=== PATIENT | male | born 1960 | race Caucasian/White ===

== ENCOUNTER → 2017-09-28 | Outpatient (CLI) | payer BC ==
[~2017-09-28] MED LIST: NYQUIL; ONDA4TAB46 PO
== END | disposition home or self-care (01) ==
LOC: C.PATHSPEC 14:54
PROVIDERS: ATTEND Dentist Oral and Maxillofacial Surgery
DX: D18.01 Hemangioma of skin and subcutaneous tissue (principal)

== ENCOUNTER 2022-11-23 16:39 | Inpatient (IN) ==
--- NOTE | 2022-11-23 17:07 | Emergency Department Note ---
Impression & Plan Pulmonary embolism, Chest pain, Hematuria, Acute right flank pain ED Provider Note NAME: MYRTLE GARCIA JR AGE: 62 SEX: M : 1960 ARRIVES VIA: Walk-In INFORMANT: Patient, ED PROVIDER(S): Vernon Floyd MD CHIEF COMPLAINT: Flank pain, shortness of breath MEDICAL DECISION MAKING: Patient presents due to concern for right-sided flank pain which has improved since it began. The patient did have blood work completed and IV was established [id number] BMP urinalysis obtained. The patient declined any pain medication but was given some IV Zofran. Patient did have a CT of the abdomen pelvis with IV contrast ordered. Patient has a normal white counts hemoglobin and platelet count. Kidney function is unremarkable. Troponin not elevated. Prerenal azotemia noted. Patient had complained worsening pain so was given some morphine IV 6 mg. Lipase at 84. Urinalysis does show blood. COVID-negative CT of the abdomen pelvis does show consolidation in the right lung base does show concern for the possibility of PE. The patient was ordered heparin and coags. Patient was also ordered CT angiography of the chest. I did speak the on-call hospitalist Dr. Flaherty the patient was admitted to the medicine service. I did review the patient's CT angiography of the chest which showed right lower lobe PE no evide nce of right heart strain. Possible right lower lobe infiltrate or infarct. Patient was admitted to Dr. Flaherty. Critical Care: I have personally spent 40 minutes of critical care time in direct management of this patient. This includes bedside care, interpretation of diagnostic studies, and testing, discussion with consultants, patient, and family members, and other require inpatient management activities. This 40 minutes is in excess of all separately billable procedures. Prior /Outside records reviewed: Did review the patient's most recent EP visit with Dr. Faye which showed the patient does have a dual-chamber pacemaker secondary to complete heart block. I did review the patient did have a cardiac catheterization with Dr. Joseph in July 2018 which showed nonobstructive CAD 20 to 30% ostial circumflex disease otherwise unremarkable Differential diagnosis: Renal colic, UTI, appendicitis, diverticulitis, mesenteric ischemia, aortic pathology, infections, inflammatory bowel disease, PUD, cholecystitis among others were considered Diagnostics, as interpreted by me: ECG: None Cardiac monitoring: An order was placed for continuous cardiac monitoring. The monitor shows a rate of 88 with sinus rhythm. Patient was placed on pulse oximetry Medical decision rules: none Imaging studies: See below HPI: Patient presents due to concern for right-sided flank pain that he noticed earlier this morning. He did state that it was more a 10 out of 10 earlier but has since improved. Patient did take some Tylenol. Patient denies any current chest pains or shortness of breath but he states that the pain was causing difficulty with his breathing earlier. No recent falls or trauma. The patient did have a prostate biopsy performed by Dr. Moncada at [facility] on Monday. Patient did have some nausea earlier but this is since improved. The patient had no vomiting. No fevers or chills. The patient denies any current chest pains or shortness of breath. Patient did have the recent procedure but this was "in and out." The patient did not require sedation or endotracheal intubation. The patient denies any recent hospitalizations leg swelling or calf pain no recent prolonged car plane travel no history of DVT or PE. The patient does take a baby aspirin but no blood thinners. No recent falls or trauma the patient denies any current blood in the urine or stool. The patient states that after the biopsy he did have some scant blood in urine but this is since cleared up. PAST MEDICAL HISTORY: See Below PAST SURGICAL HISTORY: See Below SOCIAL HISTORY: See Below HOME MEDICATIONS: See Below ALLERGIES: See Below VITALS: See Below PHYSICAL EXAMINATION: GENERAL: NAD, wearing a mask, non-toxic. EYE EXAM: Normal conjunctiva. PERRL, no anisocoria and EOM's grossly intact w/o pain. NECK: Supple, no nuchal rigidity, no adenopathy, non-tender. No signs of meningismus. FROM of the neck with good chin to chest and neck extension. No st ridor. LUNGS: Clear to auscultation. Normal chest wall mechanics. HEART: NSR, no MRG. ABDOMEN: Abdomen soft, non-tender, normo-active bowel sounds, no masses, no rebound or guarding. BACK: No CVA TTP. SKIN: No rashes and no bruising. UPPER EXTREMITIES: Upper extremities are grossly normal. LOWER EXTREMITIES: Grossly normal, no edema. NEURO EXAM: A&O x3, cranial nerves II-XII grossly intact, normal speech, moves all 4 extremities. Past Med/Surg History Medical History Aortic root dilatation CAD (coronary artery disease) Mild nonobstructive coronary artery disease per 2018 cardiac cath Obesity (BMI 30.0-34.9) Pacemaker Implanted 2018 (complete heart block), [employer], follows with Dr. Faye/[place] Pericarditis 2018 Surgical History History of colonoscopy History of permanent cardiac pacemaker placement Implanted 2018 (complete heart block), [employer], last check 2020, follows with Dr. Faye/[place] Hx of sinus surgery Septoplasty, Celon Turbinate Reduction (11/06/20): LMA#4 at [facility] Family History Brother Aneurysm Father Coronary heart disease Myocardial infarction Other No family history of adverse response to anesthesia Social History Smoking Status: Former smoker Second Hand Exposure: No; Hx Alcohol Use: No Hx Substance Use: No Preferred Language: Indian Communication Ability: Effective Director Prospect Required: No Beliefs That Will Affect Care: None marital status: Current Living Situation: Spouse current occupational status: employed current occupation: [employer] Feels Safe at Home: Yes Assistive Devices: None Allergies Allergies Allergy/AdvReac Type Severity Reaction Status Date / Time No Known Allergies Allergy Verified 11/23/22 19:57 Home Meds Home Medications Medication Instructions Recorded Confirmed tamsulosin 0.4 mg capsule 0.4 mg PO DAILY 11/01/22 11/23/22 aspirin 81 mg tablet,delayed 81 mg PO DAILY 11/23/22 11/23/22 release atorvastatin 20 mg PO DAILY 11/23/22 11/23/22 Results & Data (ED) Vital Signs Vital Signs - 24 hr 11/23/22 16:39 11/23/22 18:00 11/23/22 18:07 Temperature 36.3 C L Temperature Source Temporal Artery Scan Pulse Rate 114 H Pulse Rate [Apical] 96 H Respiratory Rate 16 18 Respiratory Effort / Characteristics Non-Labored Spontaneous Respiratory Depth Normal Respiratory Pattern Regular Blood Pressure 128/58 L Blood Pressure [Left Arm] 124/78 Blood Pressure Mean 81 Blood Pressure Mean [Left Arm] 93 Blood Pressure Position [Left Arm] Lying Pulse Oximetry 97 96 94 Oxygen Delivery Method Room Air Room Air Sepsis Recent Fever Within 48 Hours No Sepsis New/Unexplained Change in Mental Status No Sepsis Action Taken by Nursing No Action Required 11/23/22 18:42 11/23/22 18:58 11/23/22 22:53 Temperature Temperature Source Pulse Rate 90 106 H Pulse Rate [Apical] 112 H Respiratory Rate 18 Respiratory Effort / Characteristics Non-Labored Spontaneous Respiratory Depth Normal Respiratory Pattern Regular Blood Pressure Blood Pressure [Left Arm] 131/86 Blood Pressure Mean Blood Pressure Mean [Left Arm] 101 Blood Pressure Position [Left Arm] Pulse Oximetry 94 Oxygen Delivery Method Room Air Sepsis Recent Fever Within 48 Hours Sepsis New/Unexplained Change in Mental Status Sepsis Action Taken by [place]way Medications Current Medication List: was personally reviewed by me Laboratory Data Attestation: I reviewed the patient's lab results. 11/23/22 17:15 11/23/22 17:15 Lab Results 11/23/22 11/23/22 11/23/22 Range/Units 17:15 17:15 17:15 WBC 9.04 (4.8-10.8) K/ul RBC 4.43 L (4.70-6.10) M/uL Hgb 14.0 (14.0-18.0) g/dl POC Hgb (14.0-18.0) g/dl Hct 40.4 L (42.0-52.0) % POC Hct (42-52) % MCV 91.2 (80.0-100.0) fL MCH 31.6 (25.0-34.0) pg MCHC 34.7 (32.0-36.0) g/dL RDW Std Deviation 42.9 (36.4-46.3) fL RDW Coeff of Lyle 12.8 (11.5-14.5) % Plt Count 228 (130-400) K/uL MPV 9.9 (9.4-12.4) fL Immature Gran % (Auto) 0.3 % Neut % (Auto) 74.6 % Lymph % (Auto) 12.3 % [place] % (Auto) 10.6 % Eos % (Auto) 1.9 % Baso % (Auto) 0.3 % Neut # (Auto) 6.74 H (1.40-6.50) K/uL Lymph # (Auto) 1.11 L (1.2-3.4) K/uL [place] # (Auto) 0.96 H (0.11-0.59) K/uL Eos # (Auto) 0.17 (0-0.50) K/uL Baso # (Auto) 0.03 (0-0.2) K/uL Immature Gran # (Auto) 0.03 (0.01-0.20) K/uL PT (9.0-12.0) Seconds INR (0.9-1.1) APTT (21.0-31.0) Seconds PTT Ratio POC Sodium (135-144) mmol/L Sodium 139 (136-145) mmol/L POC Potassium (3.3-5.0) mmol/L Potassium 3.9 (3.5-5.1) mmol/L POC Chloride (101-112) mmol/L Chloride 106 (98-107) mmol/L Carbon Dioxide 24 (21-32) mmol/L POC Total CO2 (24-31) mmol/L Anion Gap 9 (3-11) POC Anion Gap (16-25) mmol/L POC BUN (7-18) mg/dl BUN 32 H (6-23) mg/dl Creatinine 0.98 (0.6-1.4) mg/dl POC Creatinine (0.6-1.3) mg/dl Est Cr Clr Drug Dosing 104.8 ml/min Est GFR ( Amer) 95.4 ml/min Est GFR (Non-Af Amer) 82.3 ml/min BUN/Creatinine Ratio 32.7 H (10-20) Glucose 101 H (70-99(Fasting)) mg/dl POC Glucose (other) (70-99) mg/dl Calcium 9.2 (8.5-10.1) mg/dl POC Ioniz Calcium Ashlee (1.12-1.32) mmol/l Total Bilirubin 0.6 (0.2-1.0) mg/dl AST 17 (13-39) U/L ALT 22 (7-52) U/L Alkaline Phosphatase 107 H (34-104) U/L Troponin I High Sens 3.3 (0-20) pg/ml Total Protein 7.2 (6.0-8.3) gm/dl Albumin 4.2 (3.4-5.0) gm/dl Globulin 3.0 (2.5-4.0) gm/dl Albumin/Globulin Ratio 1.4 (0.9-2) Lipase 84 H (11-82) U/L Urine Color Dark Yellow Urine Appearance Cloudy A (Clear) Urine pH 5.5 (4.5-7.5) Ur Specific [place]atz 1.035 H (1.000-1.030) Urine Protein Trace H (Negative) Urine Glucose (UA) Negative (Negative) Urine Ketones Negative (Negative) Urine Blood 2+ H (Negative) Urine Nitrite Negative (Negative) Urine Bilirubin Negative (Negative) Urine Urobilinogen Negative (Negative) Ur Leukocyte Esterase Negative (Negative) Urine WBC (Auto) 10-30 H (0-5) /hpf Urine RBC (Auto) >30 H (0-4) /hpf U Hyaline Cast (Auto) 5-10 H (0-5) /lpf U Epithel Cells (Auto) 10-20 H (0-5) /lpf Urine Bacteria (Auto) Negative (Negative) SARS-CoV-2, RNA, NAAT (NEGATIVE) 11/23/22 11/23/22 11/23/22 Range/Units 18:02 20:15 21:47 WBC (4.8-10.8) K/ul RBC (4.70-6.10) M/uL Hgb (14.0-18.0) g/dl POC Hgb 13.6 L (14.0-18.0) g/dl Hct (42.0-52.0) % POC Hct 40 L (42-52) % MCV (80.0-100.0) fL MCH (25.0-34.0) pg MCHC (32.0-36.0) g/dL RDW Std Deviation (36.4-46.3) fL RDW Coeff of Lyle (11.5-14.5) % Plt Count (130-400) K/uL MPV (9.4-12.4) fL Immature Gran % (Auto) % Neut % (Auto) % Lymph % (Auto) % [place] % (Auto) % Eos % (Auto) % Baso % (Auto) % Neut # (Auto) (1.40-6.50) K/uL Lymph # (Auto) (1.2-3.4) K/uL [place] # (Auto) (0.11-0.59) K/uL Eos # (Auto) (0-0.50) K/uL Baso # (Auto) (0-0.2) K/uL Immature Gran # (Auto) (0.01-0.20) K/uL PT 10.5 (9.0-12.0) Seconds INR 1.0 (0.9-1.1) APTT 25.1 (21.0-31.0) Seconds PTT Ratio 0.9 POC Sodium 141 (135-144) mmol/L Sodium (136-145) mmol/L POC Potassium 3.8 (3.3-5.0) mmol/L Potassium (3.5-5.1) mmol/L POC Chloride 104 (101-112) mmol/L Chloride (98-107) mmol/L Carbon Dioxide (21-32) mmol/L POC Total CO2 25 (24-31) mmol/L Anion Gap (3-11) POC Anion Gap 17.0 (16-25) mmol/L POC BUN 30 H (7-18) mg/dl BUN (6-23) mg/dl Creatinine (0.6-1.4) mg/dl POC Creatinine 1.0 (0.6-1.3) mg/dl Est Cr Clr Drug Dosing ml/min Est GFR ( Amer) ml/min Est GFR (Non-Af Amer) ml/min BUN/Creatinine Ratio (10-20) Glucose (70-99(Fasting)) mg/dl POC Glucose (other) 99 (70-99) mg/dl Calcium (8.5-10.1) mg/dl POC Ioniz Calcium Ashlee 1.20 (1.12-1.32) mmol/l Total Bilirubin (0.2-1.0) mg/dl AST (13-39) U/L ALT (7-52) U/L Alkaline Phosphatase (34-104) U/L Troponin I High Sens (0-20) pg/ml Total Protein (6.0-8.3) gm/dl Albumin (3.4-5.0) gm/dl Globulin (2.5-4.0) gm/dl Albumin/Globulin Ratio (0.9-2) Lipase (11-82) U/L Urine Color Urine Appearance (Clear) Urine pH (4.5-7.5) Ur Specific [place] (1.000-1.030) Urine Protein (Negative) Urine Glucose (UA) (Negative) Urine Ketones (Negative) Urine Blood (Negative) Urine Nitrite (Negative) Urine Bilirubin (Negative) Urine Urobilinogen (Negative) Ur Leukocyte Esterase (Negative) Urine WBC (Auto) (0-5) /hpf Urine RBC (Auto) (0-4) /hpf U Hyaline Cast (Auto) (0-5) /lpf U Epithel Cells (Auto) (0-5) /lpf Urine Bacteria (Auto) (Negative) SARS-CoV-2, RNA, NAAT NEGATIVE (NEGATIVE) Administered Medications Heparin Sodium/Dextrose (Heparin Sodium/Dextrose) 25,000 units in 500 mls @ 34 mls/hr IV .[id number] [facility]; Protocol Stop: 12/23/22 20:29 Last Admin: 11/23/22 21:41 Dose: 1,700 units/hr, 34 mls/hr Documented By: GISELL Co-signed By: Discontinued Medications Ioversol (Optiray 350 100ml) 85 ml IV ONCE ONE Stop: 11/23/22 18:19 Last Admin: 11/23/22 18:22 Dose: 85 ml Documented By: CARIDAD Ioversol (Optiray 320 500ml) 111 ml IV ONCE ONE Stop: 11/23/22 21:20 Last Admin: 11/23/22 21:20 Dose: 111 ml Documented By: CARIDAD Morphine Sulfate (Morphine Sulfate 10 Mg/Ml Carp/Vial) 6 mg IV NOW STA Stop: 11/23/22 18:43 Last Admin: 11/23/22 18:46 Dose: Not Given Documented By: JEREMIAH Morphine Sulfate (Morphine Sulfate 4 Mg/Ml 1 Ml Carp\\Vial) Confirm Administered Dose 4 mg .ROUTE .STK-MED ONE Stop: 11/23/22 18:45 Last Admin: 11/23/22 18:46 Dose: 4 mg Documented By: JEREMIAH Morphine Sulfate (Morphine Sulfate 2 Mg/Ml Carp) Confirm Administered Dose 2 mg .ROUTE .STK-MED ONE Stop: 11/23/22 18:46 Last Admin: 11/23/22 18:46 Dose: 2 mg Documented By: JEREMIAH Ondansetron HCl (Ondansetron Inj 2 Mg/Ml 2 Ml Vial) 4 mg IV NOW STA Stop: 11/23/22 17:22 Last Admin: 11/23/22 17:43 Dose: 4 mg Documented By: BEZ Imaging Data Radiologist's Impression: Abdomen/Pelvis CT 11/23/22 17:21 CT SCAN OF THE ABDOMEN AND PELVIS WITH IV CONTRAST CLINICAL HISTORY: Right flank pain. COMPARISON STUDY: No priors. TECHNIQUE: Following the IV administration of 85 cc of Optiray 350, CT scan of the abdomen and pelvis is performed from the lung bases to the proximal femora. Images are reviewed in the axial, sagittal, and coronal planes. IV contrast was administered without complication. A dose lowering technique was utilized adhering to the principles of ALARA. CT DOSE: 857.24 mGy.cm FINDINGS: Lung bases: The heart is enlarged and without pericardial effusion. Pacemaker leads are in place. A 4 mm pleural-based nodule is seen in the right middle lobe on image #10. Question pulmonary embolus within a branch of the right lower lobe pulmonary artery. Dependent consolidation is seen at the right lung base. There is a small to moderate hiatal hernia. Prominent lymph nodes adjacent to the distal esophagus measure up to 10 mm in short axis. Liver: The contrast-enhanced liver is mildly enlarged measuring over 18 cm in length. The liver demonstrates mixed attenuation suggesting steatosis. There is no intrahepatic biliary ductal dilatation. The hepatic veins and portal veins are patent. Gallbladder: Unremarkable. Spleen: Normal in size and attenuation. Pancreas: Unremarkable. Adrenal glands: Unremarkable. Kidneys: The contrast enhanced kidneys are normal in size and without hydronephrosis. The kidneys enhance symmetrically. A 6 cm cyst arises from the upper pole of the right kidney. Renal sinus cysts are seen bilaterally. Abdominal vasculature: The abdominal aorta is normal in course and caliber noting mild atherosclerotic calcification. Bowel: There is mild colonic fecal retention. No bowel obstruction is seen. The appendix is well-visualized and normal. Peritoneum: There is no intraperitoneal free air or abdominal ascites. There is a fat-containing umbilical hernia. There is nonspecific haziness throughout the central mesentery. Lymphadenopathy: None. Pelvic viscera: The prostate gland is moderately enlarged and heterogeneous. The bladder is normal as visualized. There is a fat-containing right inguinal hernia. Skeletal structures: The skeletal structures are osteopenic. Mild lumbosacral spondylosis is observed. No lytic or blastic lesions are seen. IMPRESSION: 1. There is dependent consolidation at the right lung base, which could represent a mild pneumonitis or possibly a small pulmonary infarct. Pulmonary embolus is questioned within branches of the right lower lobe pulmonary artery a nd a small infarct is favored. Correlation with a CT angiogram of the chest is recommended as this is not well assessed on this abdominal examination. 2. No acute infectious or inflammatory findings are identified in the abdomen or pelvis. 3. Cardiomegaly and cardiac pacemaker. 4. The liver is mildly enlarged and steatotic. 5. Additional findings as above. ACT 112: Negative or not required by law. Electronically signed by: Abraham Gross M.D. 11/23/2022 7:45 PM Chest CTA 11/23/22 20:43 CR Exam(s): CTA CHEST EXAM: CT Angiography Chest With Intravenous Contrast CLINICAL HISTORY: Reason for exam: PE. TECHNIQUE: Axial computed tomographic angiography images of the chest with intravenous contrast. CTDI is 36.11 mGy and DLP is 720.07 mGy-cm. Automated exposure control was utilized for the study. A dose lowering technique was utilized adhering to the principles of ALARA. MIP reconstructed images were created and reviewed. 111ml optiray 320 given IV. COMPARISON: None. FINDINGS: Pulmonary arteries: Mild burden, occlusive, segmental and subsegmental right lower lobe pulmonary embolism. Aorta: No aneurysm. Lungs: Mild, dependent infiltrate or infarct right lower lobe. Small left upper lobe nodular infiltrates. Isolated 4 mm right middle lobe pleural-based pulmonary nodule. Mild left lower lobe atelectasis or infiltrate. No consolidation. Pleural space: No significant effusion. No pneumothorax. Heart: Pacemaker. Mild to moderate cardiomegaly. No significant pericardial effusion. No evidence of elevated right heart pressures. Bones/joints: No acute fracture. Soft tissues: Wall thickening of esophagus with hiatal hernia and fluid distention, nonspecific, cannot rule out esophagitis and/or reflux. Right upper pole renal cyst, 5.5 cm, partially imaged. Lymph nodes: No enlarged lymph nodes. IMPRESSION: 1. Mild right lower lobe pulmonary embolism. No right heart strain. 2. Mild right lower lobe infiltrate or infarct. Mild left lower lobe infiltrate. 3. Nodular infiltrate left upper lobe and 4 mm pleural-based nodule right middle lobe. 4. Moderate to severe fluid distended osseous with wall thickening and hiatal hernia. Correlate clinically, cannot rule out esophagitis and/or reflux. Communications: Call Doctor Pulmonary Embolism Electronically signed by: Beth Meek M.D. 11/23/22 21:42 PM Discharge Plan Visit Data Chief Complaint: Back Injury/Pain Stated Complaint: BACK PAIN R SIDE, AFFECTING BREATHING, ED Provider: Vernon Floyd Prescriptions Prescriptions: No Action tamsulosin 0.4 mg capsule 0.4 mg PO DAILY aspirin [Aspir-81] 81 mg Tablet,Delayed Release (Dr/Ec) 81 mg PO DAILY atorvastatin 20 mg 20 mg PO DAILY
[2022-11-23] MEDS ORDERED: ONDANSETRON INJ 2 MG/ML 2 ML VIAL IV STA (17:21)
[2022-11-23 17:48] LABS: Basophils # (auto) 0.03 K/uL (0-0.2); Basophils % (auto) 0.3 %; Eosinophils # (auto) 0.17 K/uL (0-0.50); Eosinophils % (auto) 1.9 %; Hematocrit (blood only) 40.4 % (42.0-52.0); Immature Granulocytes # (auto) 0.03 K/uL (0.01-0.20); Immature Granulocytes % (auto) 0.3 %; Lymphocytes # (auto) 1.11 K/uL (1.2-3.4); Lymphocytes % (auto) 12.3 %; Mean Corpuscular Hemoglobin 31.6 pg (25.0-34.0); Mean Corpuscular Hgb Conc 34.7 g/dL (32.0-36.0); Mean Corpuscular Volume 91.2 fL (80.0-100.0); Mean Platelet Volume 9.9 fL (9.4-12.4); Monocytes # (auto) 0.96 K/uL (0.11-0.59); Monocytes % (auto) 10.6 %; Neutrophils # (auto) 6.74 K/uL (1.40-6.50); Neutrophils % (auto) 74.6 %; Platelet Count 228 K/uL (130-400); RDW Coefficient of Variation 12.8 % (11.5-14.5); RDW Standard Deviation 42.9 fL (36.4-46.3); Red Blood Count 4.43 M/uL (4.70-6.10); White Blood Count 9.04 K/ul (4.8-10.8)
[2022-11-23 18:02] LABS: Appearance Urine Cloudy (Clear); Bacteria Urine Automated Negative (Negative); Bilirubin Urine Negative (Negative); Blood Urine 2+ (Negative); Color Urine Dark Yellow; Glucose Urine UA Negative (Negative); Ketones Urine Negative (Negative); Leukocyte Esterase Urine Negative (Negative); Nitrite Urine Negative (Negative); Protein Urine Trace (Negative); RBC Urine Automated >30 /hpf (0-4); Specific Gravity Urine 1.035 (1.000-1.030); Urobilinogen Urine Negative (Negative); pH Urine 5.5 (4.5-7.5)
[2022-11-23 18:06] LABS: Albumin Globulin Ratio 1.4 (0.9-2); Albumin Level 4.2 gm/dl (3.4-5.0); BUN Creatinine Ratio 32.7 (10-20); Bilirubin,Total 0.6 mg/dl (0.2-1.0); Calcium 9.2 mg/dl (8.5-10.1); Creatinine Clr Calc Pharmacy 104.8 ml/min; Est GFR (African American) 95.4 ml/min; Est GFR (Non-African American) 82.3 ml/min; Potassium 3.9 mmol/L (3.5-5.1); Total Protein 7.2 gm/dl (6.0-8.3)
[2022-11-23 18:11] LABS: Troponin I High Sensitivity 3.3 pg/ml (0-20)
[2022-11-23 18:16] LABS: iSTAT Hemoglobin 13.6 g/dl (14.0-18.0); iSTAT Ionized Calcium 1.2 mmol/l (1.12-1.32); iSTAT Potassium 3.8 mmol/L (3.3-5.0)
[2022-11-23] MEDS ORDERED: OPTIRAY 350 100ml IV ONE (18:18)
[2022-11-23] MEDS ORDERED: MoRPHine SULFATE 10 MG/ML CARP/VIAL IV STA (18:42)
[2022-11-23] MEDS ORDERED: MoRPHine SULFATE 4 MG/ML 1 ML CARP\\VIAL ONE (18:44)
[2022-11-23] MEDS ORDERED: MoRPHine SULFATE 2 MG/ML CARP ONE (18:45)
--- NOTE | 2022-11-23 19:47 | CT Scan Report ---
CT SCAN OF THE ABDOMEN AND PELVIS WITH IV CONTRAST CLINICAL HISTORY: Right flank pain. COMPARISON STUDY: No priors. TECHNIQUE: Following the IV administration of 85 cc of Optiray 350, CT scan of the abdomen and pelvi s is performed from the lung bases to the proximal femora. Images are reviewed in the axial, sagittal , and coronal planes. IV contrast was administered without complication. A dose lowering technique wa s utilized adhering to the principles of ALARA. CT DOSE: 857.24 mGy.cm FINDINGS: Lung bases: The heart is enlarged and without pericardial effusion. Pacemaker leads are in place. A 4 mm pleural-based nodule is seen in the right middle lobe on image #10. Question pulmonary embolus wi thin a branch of the right lower lobe pulmonary artery. Dependent consolidation is seen at the right lung base. There is a small to moderate hiatal hernia. Prominent lymph nodes adjacent to the distal e sophagus measure up to 10 mm in short axis. Liver: The contrast-enhanced liver is mildly enlarged measuring over 18 cm in length. The liver demon strates mixed attenuation suggesting steatosis. There is no intrahepatic biliary ductal dilatation. T he hepatic veins and portal veins are patent. Gallbladder: Unremarkable. Spleen: Normal in size and attenuation. Pancreas: Unremarkable. Adrenal glands: Unremarkable. Kidneys: The contrast enhanced kidneys are normal in size and without hydronephrosis. The kidneys enh ance symmetrically. A 6 cm cyst arises from the upper pole of the right kidney. Renal sinus cysts are seen bilaterally. Abdominal vasculature: The abdominal aorta is normal in course and caliber noting mild atheroscleroti c calcification. Bowel: There is mild colonic fecal retention. No bowel obstruction is seen. The appendix is well-vis ualized and normal. Peritoneum: There is no intraperitoneal free air or abdominal ascites. There is a fat-containing umbi lical hernia. There is nonspecific haziness throughout the central mesentery. Lymphadenopathy: None. Pelvic viscera: The prostate gland is moderately enlarged and heterogeneous. The bladder is normal as visualized. There is a fat-containing right inguinal hernia. Skeletal structures: The skeletal structures are osteopenic. Mild lumbosacral spondylosis is observed . No lytic or blastic lesions are seen. IMPRESSION: 1. There is dependent consolidation at the right lung base, which could represent a mild pneumonitis or possibly a small pulmonary infarct. Pulmonary embolus is questioned within branches of the right l ower lobe pulmonary artery and a small infarct is favored. Correlation with a CT angiogram of the [place] [address] is recommended as this is not well assessed on this abdominal examination. 2. No acute infectious or inflammatory findings are identified in the abdomen or pelvis. 3. Cardiomegaly and cardiac pacemaker. 4. The liver is mildly enlarged and steatotic. 5. Additional findings as above. ACT 112: Negative or not required by law. Electronically signed by: Abraham Gross M.D. 11/23/2022 7:45 PM
[2022-11-23] MEDS ORDERED: Heparin IV Adult Wt-Based Standard *NO* Bolus Protocol IV ONE (20:01)
[2022-11-23] MEDS ORDERED: HEPARIN SODIUM/DEXTROSE 25,000 UNITS/500 ML BAG IV SCH (20:30)
[2022-11-23 21:06] LABS: Partial Thromboplastin Ratio 0.9; Partial Thromboplastin Time 25.1 Seconds (21.0-31.0); Prothrombin Time 10.5 Seconds (9.0-12.0)
[2022-11-23] MEDS ORDERED: OPTIRAY 320 500ml IV ONE (21:19)
--- NOTE | 2022-11-23 21:43 | CT Scan Report ---
Exam(s): CTA CHEST EXAM: CT Angiography Chest With Intravenous Contrast CLINICAL HISTORY: Reason for exam: PE. TECHNIQUE: Axial computed tomographic angiography images of the chest with intravenous contrast. CTDI is 36.11 mGy and DLP is 720.07 mGy-cm. Automated exposure control was utilized for the study. A dose lowering technique was utilized adhering to the principles of ALARA. MIP reconstructed images were created and reviewed. 111ml optiray 320 given IV. COMPARISON: None. FINDINGS: Pulmonary arteries: Mild burden, occlusive, segmental and subsegmental right lower lobe pulmonary embolism. Aorta: No aneurysm. Lungs: Mild, dependent infiltrate or infarct right lower lobe. Small left upper lobe nodular infiltrates. Isolated 4 mm right middle lobe pleural-based pulmonary nodule. Mild left lower lobe atelectasis or infiltrate. No consolidation. Pleural space: No significant effusion. No pneumothorax. Heart: Pacemaker. Mild to moderate cardiomegaly. No significant pericardial effusion. No evidence of elevated right heart pressures. Bones/joints: No acute fracture. Soft tissues: Wall thickening of esophagus with hiatal hernia and fluid distention, nonspecific, cannot rule out esophagitis and/or reflux. Right upper pole renal cyst, 5.5 cm, partially imaged. Lymph nodes: No enlarged lymph nodes. IMPRESSION: 1. Mild right lower lobe pulmonary embolism. No right heart strain. 2. Mild right lower lobe infiltrate or infarct. Mild left lower lobe infiltrate. 3. Nodular infiltrate left upper lobe and 4 mm pleural-based nodule right middle lobe. 4. Moderate to severe fluid distended osseous with wall thickening and hiatal hernia. Correlate clinically, cannot rule out esophagitis and/or reflux. Communications: Call Doctor Pulmonary Embolism Electronically signed by: Beth Meek M.D. 11/23/22 21:42 PM
[2022-11-23] MEDS ORDERED: ONDANSETRON INJ 2 MG/ML 2 ML VIAL IV PRN (23:15)
[2022-11-23] MEDS ORDERED: ACETAMINOPHEN 325 MG TAB PO PRN (23:15)
[2022-11-23] MEDS ORDERED: NITROGLYCERIN SL 0.4 MG/TAB TAB SL PRN (23:15)
[2022-11-23] MEDS ORDERED: SODIUM CHLORIDE 0.9% 1000ML 1,000 ML IV SCH (23:15)
[2022-11-23] MEDS ORDERED: cefTRIAXone SODIUM 2,000 MG in DEXTROSE 5% 50 ML IV SCH (23:30)
--- NOTE | 2022-11-24 00:12 | History and Physical Report ---
DATE OF ADMISSION: 11/23/2022. CHIEF COMPLAINT: Right flank pain. HISTORY OF PRESENT ILLNESS: This is a 62-year-old male with past medical history significant for complete heart block, status post pacemaker, borderline aortic root dilatation in 2018, nonobstructive CAD in 2018, history of hyperlipidemia, presents with right flank pain since the morning. At times, it was 10/10 in severity. When the pain was severe, he was nauseous and had some shortness of breath. Currently, the pain much improved, 3/10 in severity. He said he had COVID in October. Since then, he has had on and off dry cough. Denies any fevers. Nauseous when pain was severe. No abdominal pain. He had prostate biopsy done last Monday for elevated PSA. Says he had one-day duration of some blood in the stools and blood in the urine, but its resolved now. The biopsy results are pending. He has a followup appointment at the end of this month. Denies any headache. No blurred visions. No earache, no runny nose, no sore throat. Appetite is okay. Ambulating okay. Currently, resting comfortably and hemodynamically stable. ALLERGIES: No known drug allergies. PAST MEDICAL HISTORY: As mentioned above. PAST SURGICAL HISTORY: Cardiac catheterization, prostate biopsy, status post pacemaker, bunion correction, colonoscopy, pacemaker defibrillator, repair of nasal septum. MEDICATIONS: Flomax 0.4 mg p.o. daily, aspirin 81 mg p.o. daily, atorvastatin 20 mg p.o. daily. FAMILY HISTORY: Significant for father of heart disorder , Says father had blood clots; maternal grandfather had diabetes; paternal grandmother had diabetes. SOCIAL HISTORY: . quit chewing stuff one year ago. No alcohol use. No drug use. REVIEW OF SYSTEMS: As per HPI. Rest of the review of systems is negative. PHYSICAL EXAMINATION: GENERAL: The patient is of moderate build, not in acute distress. VITAL SIGNS: Temperature 36.3, pulse 90, respiratory rate 18, blood pressure 131/86, oxygen 94% on room air. HEENT: Pupils equal, round and reactive to light. Oral mucosa moist. NECK: No JVD. No neck masses. CARDIOVASCULAR: S1 and S2 heard. Regular rate and rhythm. No murmur, no gallop. RESPIRATORY SYSTEM: Normal AP diameter. No accessory muscle use. No wheezing, no crackles. ABDOMEN: Soft, bowel sounds present, nontender, no distention. CENTRAL NERVOUS SYSTEM: Cranial nerves II through XII grossly intact. Nonfocal. EXTREMITIES: Mild pedal edema present. No erythema seen. LABORATORY DATA: WBC 9, hemoglobin 14, hematocrit 40.4, platelets 228. PT 10.5, INR 1, APTT 25.1. Sodium 139, potassium 3.9, chloride 106, CO2 24, BUN 32, creatinine 0.9, serum glucose 101, calcium 9.2, total bilirubin 0.6, AST 17, ALT 22, alkaline phosphatase 107. Troponin I high sensitivity 3.3. Lipase 84. Urinalysis, +2 blood, positive for nitrite and bacteria, wbc 10-30. SARS-CoV-2 rapid test negative. IMAGING DATA: CTA chest showing mild right lower lobe pulmonary embolism. No right heart strain, mild right lower lobe infiltrate or infarct. Mild left lower lobe infiltrate. Nodular infiltrate left upper lobe, pleural-based nodule right middle lobe, [id number] fluid distended with wall thickening and hiatal hernia. Cannot rule out esophagitis and/or reflux. EKG, sinus tachycardia at a rate of 101. ASSESSMENT AND PLAN: This is a 62-year-old male presents with right flank pain and found to have pulmonary embolism. 1. Right flank pain, most likely secondary to right acute pulmonary embolism. CTA chest showing right lower lobe pulmonary embolism. Started on IV heparin, which will be continued. We will follow also echocardiogram and lower extremity Doppler. The patient says his father had blood clot. No history of recent travel. He has COVID in October. Hypercoagulable workup as outpatient. 2. Possible pneumonia. The patient also COVID in October. Empirically started on Rocephin and doxycycline. 3. Possible esophagitis and hiatal hernia. Placed on IV Protonix b.i.d. and also consult GI. We will keep him full liquid diet for now. 4. History of nonobstructive coronary artery disease. Continue aspirin and statin. 5. History of benign prostatic hypertrophy: On Flomax. 6. History of prostarte biopsy last Monday. Follow up with Urology with biopsy results. Urine culture 7. History of complete heart block, status post pacemaker. Follows with Cardiology. 8. lower extremity edema. We will follow the lower extremity Doppler and echocardiogram. 9. Deep venous thrombosis prophylaxis: Placed on IV heparin. DISPOSITION: Closely monitor in the med tele. PT/OT prior to discharge. Social service to help with discharge planning. Job ID: [id number] [facility]
[2022-11-24] MEDS: PANTOprazole 40 MG in SYRINGE 0 ML IV SCH ×3 (00:24→20:06)
[2022-11-24] MEDS: oxyCODONE HCL IR 5 MG TAB (IMMEDIATE RELEASE) PO PRN ×2 (00:31→10:33)
[2022-11-24] MEDS ORDERED: CALCIUM CARBONATE 500 MG CHEWABLE TAB PO PRN (00:35)
[2022-11-24] MEDS: DOXYCYCLINE HYCLATE 100 MG in DEXTROSE 5% 100 ML IV SCH ×2 (00:58→11:20)
[2022-11-24] MEDS ORDERED: MoRPHine SULFATE 4 MG/ML 1 ML CARP\\VIAL IV STA (01:49)
[2022-11-24 04:16] LABS: Basophils # (auto) 0.02 K/uL (0-0.2); Basophils % (auto) 0.2 %; Hematocrit (blood only) 39.2 % (42.0-52.0); Hemoglobin 13.4 g/dl (14.0-18.0); Immature Granulocytes # (auto) 0.02 K/uL (0.01-0.20); Immature Granulocytes % (auto) 0.2 %; Lymphocytes # (auto) 0.85 K/uL (1.2-3.4); Lymphocytes % (auto) 9.9 %; Mean Corpuscular Hemoglobin 31.6 pg (25.0-34.0); Mean Corpuscular Hgb Conc 34.2 g/dL (32.0-36.0); Mean Corpuscular Volume 92.5 fL (80.0-100.0); Mean Platelet Volume 9.7 fL (9.4-12.4); Monocytes # (auto) 0.71 K/uL (0.11-0.59); Monocytes % (auto) 8.3 %; Neutrophils # (auto) 6.98 K/uL (1.40-6.50); Neutrophils % (auto) 81.4 %; Platelet Count 212 K/uL (130-400); RDW Coefficient of Variation 13.2 % (11.5-14.5); RDW Standard Deviation 45.2 fL (36.4-46.3); Red Blood Count 4.24 M/uL (4.70-6.10); White Blood Count 8.58 K/ul (4.8-10.8)
[2022-11-24 04:19] LABS: BUN Creatinine Ratio 29.9 (10-20); Calcium 9.1 mg/dl (8.5-10.1); Creatinine Clr Calc Pharmacy 105.9 ml/min; Est GFR (African American) 96.6 ml/min; Est GFR (Non-African American) 83.3 ml/min; Magnesium 1.6 mg/dl (1.7-2.4)
[2022-11-24 05:16] LABS: Partial Thromboplastin Time 54.5 Seconds (21.0-31.0)
[2022-11-24] MEDS: ASPIRIN 81 MG ECTAB PO SCH (07:56)
[2022-11-24] MEDS: TAMSULOSIN HCL 0.4 MG CAP PO SCH (07:56)
[2022-11-24] MEDS: ATORVASTATIN 20 MG TAB PO SCH (07:56)
[2022-11-24] MEDS ORDERED: ENOXAPARIN 1 MG/KG SC SCH (09:45)
[2022-11-24] MEDS ORDERED: ENOXAPARIN INJ 120 MG/0.8 ML SYR SQ SCH (09:45)
[2022-11-24] MEDS ORDERED: HEPARIN STOP ORDER ONE (09:45)
--- NOTE | 2022-11-24 10:31 | Ultrasound Report ---
BILATERAL LOWER EXTREMITY VENOUS DOPPLER HISTORY: acute pulmonary emboli. Assess for DVT? COMPARISON STUDY: None. FINDINGS: There is normal compressibility, flow, and augmentation within the bilateral lower extremit y deep venous systems. IMPRESSION: No DVT within the right or left lower extremity. ACT 112: Negative or not required by law. Electronically signed by: Roger Silva M.D. 11/24/2022 10:29 AM
[2022-11-24] MEDS: MoRPHine SULFATE 2 MG/ML CARP IV PRN ×3 (11:42→20:06)
--- NOTE | 2022-11-24 12:05 | Hospitalist Progress Note ---
Date of Service November 24, 2022 Assessment & Plan (1) Acute pulmonary embolism: Plan: Presented with right lower chest pleuritic pain Patient recently diagnosed with COVID infection in October CT angio shows right lower lobe PE, most likely right lower lobe infarct causing the chest pain. DVT ruled out Currently on Lovenox twice daily Plan to discharge on Eliquis; prescription sent to pharmacy. Will check pierce. (2) Esophagitis: Plan: CT angios shows moderate to severe fluid distended with wall thickening and hiatal hernia. Currently on Protonix twice daily GI on board (3) Complete heart block: Plan: Status post pacemaker Follow-up with cardiology. (4) BPH (benign prostatic hyperplasia): Plan: On Flomax (5) CAD (coronary artery disease): Plan: Nonobstructive CAD. Continue on aspirin and statin Plan Full code DVT prophylaxis therapeutic heparin DispoHome after resolution of medical issues Admission and Anticipated Discharge Date Admission Date: November 23, 2022 Subjective Patient seen and examined at bedside. He reports sharp pleuritic chest pain on right side of the chest. He also reports shortness of breath on exertion. Review of Systems Review of Systems: All systems reviewed & are unremarkable except as noted in Subjective Physical Exam Physical Exam: Constitutional: WD/WN, vitals as above, NAD, sitting up in bed, pleasant, conversing easily Respiratory: Bilateral clear vesicular breath sound. Cardiovascular: RRR, no murmur, no edema Vessels: no JVD or carotid bruit Chest: normal inspection of chest Abdomen: normal bowel sounds, soft, nontender, no hepatosplenomegaly Musculoskeletal: no cyanosis or clubbing, extremities motor strength 5/5 Skin: no rashes, warm and dry normal turgor Neurologic: PERRL, EOMI, accommodation nl, no face palsy, no dysarthria CN's II- XI intact bilaterally and moves all extremities Psychiatric: A+Ox3, euthymic affect Lymphatic: no cervical or axillary lymphadenopathy : deferred Results & Data Results & Data Vital Signs (Past 12 Hours) Vital Signs Temp Pulse Pulse Pulse Resp BP Pulse Ox 11/24/22 11:23 36.6 C 91 H 16 134/82 96 11/24/22 08:35 37.3 C 84 16 126/78 98 11/24/22 07:06 85 11/24/22 05:52 36.7 C 92 H 20 117/75 96 11/24/22 04:17 36.7 C 94 H 20 124/78 92 11/24/22 01:07 116 H O2 Del Method O2 Flow Rate 11/24/22 11:23 Nasal Cannula 3 11/24/22 08:35 Nasal Cannula 3 11/24/22 07:06 11/24/22 05:52 Nasal Cannula 2 11/24/22 04:17 Room Air 11/24/22 01:07 Laboratory Results Laboratory Results WBC 8.58 K/ul (4.8-10.8) 11/24/22 03:52 RBC 4.24 M/uL (4.70-6.10) L 11/24/22 03:52 Hgb 13.4 g/dl (14.0-18.0) L 11/24/22 03:52 POC Hgb 13.6 g/dl (14.0-18.0) L 11/23/22 18:02 Hct 39.2 % (42.0-52.0) L 11/24/22 03:52 POC Hct 40 % (42-52) L 11/23/22 18:02 MCV 92.5 fL (80.0-100.0) 11/24/22 03:52 MCH 31.6 pg (25.0-34.0) 11/24/22 03:52 MCHC 34.2 g/dL (32.0-36.0) 11/24/22 03:52 RDW Std Deviation 45.2 fL (36.4-46.3) 11/24/22 03:52 RDW Coeff of Lyle 13.2 % (11.5-14.5) 11/24/22 03:52 Plt Count 212 K/uL (130-400) 11/24/22 03:52 MPV 9.7 fL (9.4-12.4) 11/24/22 03:52 Immature Gran % (Auto) 0.2 % 11/24/22 03:52 Neut % (Auto) 81.4 % 11/24/22 03:52 Lymph % (Auto) 9.9 % 11/24/22 03:52 Cedar % (Auto) 8.3 % 11/24/22 03:52 Eos % (Auto) 0.0 % 11/24/22 03:52 Baso % (Auto) 0.2 % 11/24/22 03:52 Neut # (Auto) 6.98 K/uL (1.40-6.50) H 11/24/22 03:52 Lymph # (Auto) 0.85 K/uL (1.2-3.4) L 11/24/22 03:52 Cedar # (Auto) 0.71 K/uL (0.11-0.59) H 11/24/22 03:52 Eos # (Auto) 0.00 K/uL (0-0.50) 11/24/22 03:52 Baso # (Auto) 0.02 K/uL (0-0.2) 11/24/22 03:52 Immature Gran # (Auto) 0.02 K/uL (0.01-0.20) 11/24/22 03:52 PT 10.5 Seconds (9.0-12.0) 11/23/22 20:15 INR 1.0 (0.9-1.1) 11/23/22 20:15 APTT 54.5 Seconds (21.0-31.0) H* 11/24/22 03:52 PTT Ratio 2.0 11/24/22 03:52 POC Sodium 141 mmol/L (135-144) 11/23/22 18:02 Sodium 136 mmol/L (136-145) 11/24/22 03:52 POC Potassium 3.8 mmol/L (3.3-5.0) 11/23/22 18:02 Potassium 4.0 mmol/L (3.5-5.1) 11/24/22 03:52 POC Chloride 104 mmol/L (101-112) 11/23/22 18:02 Chloride 104 mmol/L (98-107) 11/24/22 03:52 Carbon Dioxide 26 mmol/L (21-32) 11/24/22 03:52 POC Total CO2 25 mmol/L (24-31) 11/23/22 18:02 Anion Gap 6 (3-11) 11/24/22 03:52 POC Anion Gap 17.0 mmol/L (16-25) 11/23/22 18:02 POC BUN 30 mg/dl (7-18) H 11/23/22 18:02 BUN 29 mg/dl (6-23) H 11/24/22 03:52 Creatinine 0.97 mg/dl (0.6-1.4) 11/24/22 03:52 POC Creatinine 1.0 mg/dl (0.6-1.3) 11/23/22 18:02 Est Cr Clr Drug Dosing 105.9 ml/min 11/24/22 03:52 Est GFR ( Amer) 96.6 ml/min 11/24/22 03:52 Est GFR (Non-Af Amer) 83.3 ml/min 11/24/22 03:52 BUN/Creatinine Ratio 29.9 (10-20) H 11/24/22 03:52 Glucose 144 mg/dl (70-99(Fasting)) H 11/24/22 03:52 POC Glucose (other) 99 mg/dl (70-99) 11/23/22 18:02 Calcium 9.1 mg/dl (8.5-10.1) 11/24/22 03:52 POC Ioniz Calcium Ashlee 1.20 mmol/l (1.12-1.32) 11/23/22 18:02 Magnesium 1.6 mg/dl (1.7-2.4) L 11/24/22 03:52 Total Bilirubin 0.6 mg/dl (0.2-1.0) 11/23/22 17:15 AST 17 U/L (13-39) 11/23/22 17:15 ALT 22 U/L (7-52) 11/23/22 17:15 Alkaline Phosphatase 107 U/L (34-104) H 11/23/22 17:15 Troponin I High Sens 3.3 pg/ml (0-20) 11/23/22 17:15 Total Protein 7.2 gm/dl (6.0-8.3) 11/23/22 17:15 Albumin 4.2 gm/dl (3.4-5.0) 11/23/22 17:15 Globulin 3.0 gm/dl (2.5-4.0) 11/23/22 17:15 Albumin/Globulin Ratio 1.4 (0.9-2) 11/23/22 17:15 Lipase 84 U/L (11-82) H 11/23/22 17:15 Procalcitonin 0.09 ng/ml (0-0.5) 11/24/22 08:06 Urine Color Dark Yellow 11/23/22 17:15 Urine Appearance Cloudy (Clear) A 11/23/22 17:15 Urine pH 5.5 (4.5-7.5) 11/23/22 17:15 Ur Specific [place] 1.035 (1.000-1.030) H 11/23/22 17:15 Urine Protein Trace (Negative) H 11/23/22 17:15 Urine Glucose (UA) Negative (Negative) 11/23/22 17:15 Urine Ketones Negative (Negative) 11/23/22 17:15 Urine Blood 2+ (Negative) H 11/23/22 17:15 Urine Nitrite Negative (Negative) 11/23/22 17:15 Urine Bilirubin Negative (Negative) 11/23/22 17:15 Urine Urobilinogen Negative (Negative) 11/23/22 17:15 Ur Leukocyte Esterase Negative (Negative) 11/23/22 17:15 Urine WBC (Auto) 10-30 /hpf (0-5) H 11/23/22 17:15 Urine RBC (Auto) >30 /hpf (0-4) H 11/23/22 17:15 U Hyaline Cast (Auto) 5-10 /lpf (0-5) H 11/23/22 17:15 U Epithel Cells (Auto) 10-20 /lpf (0-5) H 11/23/22 17:15 Urine Bacteria (Auto) Negative (Negative) 11/23/22 17:15 SARS-CoV-2, RNA, NAAT NEGATIVE (NEGATIVE) 11/23/22 21:47 Impressions Abdomen/Pelvis CT 11/23/22 17:21 CT SCAN OF THE ABDOMEN AND PELVIS WITH IV CONTRAST CLINICAL HISTORY: Right flank pain. COMPARISON STUDY: No priors. TECHNIQUE: Following the IV administration of 85 cc of Optiray 350, CT scan of the abdomen and pelvis is performed from the lung bases to the proximal femora. Images are reviewed in the axial, sagittal, and coronal planes. IV contrast was administered without complication. A dose lowering technique was utilized adhering to the principles of ALARA. CT DOSE: 857.24 mGy.cm FINDINGS: Lung bases: The heart is enlarged and without pericardial effusion. Pacemaker leads are in place. A 4 mm pleural-based nodule is seen in the right middle lobe on image #10. Question pulmonary embolus within a branch of the right lower lobe pulmonary artery. Dependent consolidation is seen at the right lung base. There is a small to moderate hiatal hernia. Prominent lymph nodes adjacent to the distal esophagus measure up to 10 mm in short axis. Liver: The contrast-enhanced liver is mildly enlarged measuring over 18 cm in length. The liver demonstrates mixed attenuation suggesting steatosis. There is no intrahepatic biliary ductal dilatation. The hepatic veins and portal veins are patent. Gallbladder: Unremarkable. Spleen: Normal in size and attenuation. Pancreas: Unremarkable. Adrenal glands: Unremarkable. Kidneys: The contrast enhanced kidneys are normal in size and without hydronephrosis. The kidneys enhance symmetrically. A 6 cm cyst arises from the upper pole of the right kidney. Renal sinus cysts are seen bilaterally. Abdominal vasculature: The abdominal aorta is normal in course and caliber noting mild atherosclerotic calcification. Bowel: There is mild colonic fecal retention. No bowel obstruction is seen. The appendix is well-visualized and normal. Peritoneum: There is no intraperitoneal free air or abdominal ascites. There is a fat-containing umbilical hernia. There is nonspecific haziness throughout the central mesentery. Lymphadenopathy: None. Pelvic viscera: The prostate gland is moderately enlarged and heterogeneous. The bladder is normal as visualized. There is a fat-containing right inguinal hernia. Skeletal structures: The skeletal structures are osteopenic. Mild lumbosacral spondylosis is observed. No lytic or blastic lesions are seen. IMPRESSION: 1. There is dependent consolidation at the right lung base, which could represent a mild pneumonitis or possibly a small pulmonary infarct. Pulmonary embolus is questioned within branches of the right lower lobe pulmonary artery and a small infarct is favored. Correlation with a CT angiogram of the chest is recommended as this is not well assessed on this abdominal examination. 2. No acute infectious or inflammatory findings are identified in the abdomen or pelvis. 3. Cardiomegaly and cardiac pacemaker. 4. The liver is mildly enlarged and steatotic. 5. Additional findings as above. ACT 112: Negative or not required by law. Electronically signed by: Abraham Gross M.D. 11/23/2022 7:45 PM Chest CTA 11/23/22 20:43 CR Exam(s): CTA CHEST EXAM: CT Angiography Chest With Intravenous Contrast CLINICAL HISTORY: Reason for exam: PE. TECHNIQUE: Axial computed tomographic angiography images of the chest with intravenous contrast. CTDI is 36.11 mGy and DLP is 720.07 mGy-cm. Automated exposure control was utilized for the study. A dose lowering technique was utilized adhering to the principles of ALARA. MIP reconstructed images were created and reviewed. 111ml optiray 320 given IV. COMPARISON: None. FINDINGS: Pulmonary arteries: Mild burden, occlusive, segmental and subsegmental right lower lobe pulmonary embolism. Aorta: No aneurysm. Lungs: Mild, dependent infiltrate or infarct right lower lobe. Small left upper lobe nodular infiltrates. Isolated 4 mm right middle lobe pleural-based pulmonary nodule. Mild left lower lobe atelectasis or infiltrate. No consolidation. Pleural space: No significant effusion. No pneumothorax. Heart: Pacemaker. Mild to moderate cardiomegaly. No significant pericardial effusion. No evidence of elevated right heart pressures. Bones/joints: No acute fracture. Soft tissues: Wall thickening of esophagus with hiatal hernia and fluid distention, nonspecific, cannot rule out esophagitis and/or reflux. Right upper pole renal cyst, 5.5 cm, partially imaged. Lymph nodes: No enlarged lymph nodes. IMPRESSION: 1. Mild right lower lobe pulmonary embolism. No right heart strain. 2. Mild right lower lobe infiltrate or infarct. Mild left lower lobe infiltrate. 3. Nodular infiltrate left upper lobe and 4 mm pleural-based nodule right middle lobe. 4. Moderate to severe fluid distended osseous with wall thickening and hiatal hernia. Correlate clinically, cannot rule out esophagitis and/or reflux. Communications: Call Doctor Pulmonary Embolism Electronically signed by: Beth Meek M.D. 11/23/22 21:42 PM Venous Doppler Study 11/24/22 00:00 BILATERAL LOWER EXTREMITY VENOUS DOPPLER HISTORY: acute pulmonary emboli. Assess for DVT? COMPARISON STUDY: None. FINDINGS: There is normal compressibility, flow, and augmentation within the bilateral lower extremity deep venous systems. IMPRESSION: No DVT within the right or left lower extremity. ACT 112: Negative or not required by law. Electronically signed by: Roger Silva M.D. 11/24/2022 10:29 AM
--- NOTE | 2022-11-24 12:44 | Gastrointestinal Consultation ---
Date of Consultation November 24, 2022 Assessment & Plan (1) Esophagitis: Plan Treat esophagitis w BID PPI. Can be po. HOB up a few inches while sleeping. No eating/drinking for 3 hrs prior to bedtime. May use an OTC liquid ant-acid for breakthrough reflux/heartburn. GI office visit w me in January or February. Our office will call him to arrange. If GERD/heartburn symptoms continue, we will arrange EGD and possibly EUS (mildly enlarged periesophageal nodes) at that time. GI will sign off. Please notify us if new/worsening GI issues. History of Present Illness Reason for Consultation: esophagitis Requesting Physician: Dr. Flaherty Attending Physician: Andrew Manley MD History of Present Illness Mr. Alfred López is a 62 yr old male pt of Dr. Abreu w a hx of heart block S/P pacer, CAD who had COVID in Oct 2022 and has had cough and reflux symptoms since that time. He presented to the ED late yesterday because yesterday afternoon, he experienced the sudden onset of severe flank/lower right sided chest pain. On arrival CT w right middle lobe PE, possible infarct, as well as hiatal hernia esophagitis, fluid filled esophagus and suggestion of prominent devonte-esophageal lymph nodes up to 10mm size. He is on a heparin drip/Eliquis was initiated. He describes the reflux as feeling burning liquids come up through the chest to the throat, moderately severe discomfort, occurring about 3x/week, improved w the use of TUMs. Prior to COVID, he did not have a hx of reflux and has never undergone EGD. He is unaware of having a hiatal hernia. He denies any blood in his BMs. He denies N/V. Allergies Allergy/AdvReac Type Severity Reaction Status Date / Time No Known Allergies Allergy Verified 11/23/22 19:57 Home Medications Medication Instructions Recorded Confirmed Type tamsulosin 0.4 mg capsule 0.4 mg PO DAILY 11/01/22 11/23/22 History aspirin 81 mg tablet,delayed 81 mg PO DAILY 11/23/22 11/23/22 History release atorvastatin 20 mg PO DAILY 11/23/22 11/23/22 History apixaban 5 mg tablet (Eliquis) 5 mg PO BID #74 tabs 11/24/22 Rx Patient History Medical History Aortic root dilatation CAD (coronary artery disease) Mild nonobstructive coronary artery disease per 2018 cardiac cath Obesity (BMI 30.0-34.9) Pacemaker Implanted 2018 (complete heart block), [employer], follows with Dr. Faye/[place] Pericarditis 2018 Surgical History History of colonoscopy History of permanent cardiac pacemaker placement Implanted 2018 (complete heart block), [employer], last check 2020, follows with Dr. Faye/[place] Hx of sinus surgery Septoplasty, Celon Turbinate Reduction (11/06/20): LMA#4 at [facility] Family History Brother Aneurysm Father Coronary heart disease Myocardial infarction Other No family history of adverse response to anesthesia Social History Smoking Status: Never smoker Second Hand Exposure: No; Hx Alcohol Use: No Hx Substance Use: No Preferred Language: [place] Communication Ability: Effective Design Studio Consultant Required: No Beliefs That Will Affect Care: None marital status: Current Living Situation: Spouse current occupational status: employed current occupation: [employer] Other Information That Helps Us Care for You: No Feels Safe at Home: Yes Safety Concerns: Feels Safe At This Time Assistive Devices: Glasses Review of Systems Review of Systems: ROS: Gen: Denies weakness, fevers, weight loss Eyes: No eye redness, or pain, no recent vision changes Resp: + cough x 2 months, mild Rt back pain w deep breath. Mild SOB Cardio: No palpitations/irregular beats, no chest pain GI: + heartburn, No abdominal pain, no nausea/vomiting : Denies pain on urination Skin: No jaundice, itching or new rashes A total of 12 systems were reviewed, all others (-). Physical Exam Constitutional: WD/WN, vitals as above Eyes: PERRL, conjunctivae normal, anicteric sclerae ENMT: external ear and nose normal, oropharynx normal Neck: trachea midline, no thyromegaly Respiratory: Decreased Rt mid/lower lung field. No wheezing. O2 sat 96% on 3L by NC. Cardiovascular: RRR, no murmur, no edema Gastrointestinal (Abdomen): normal bowel sounds, soft, nontender, no hepatosplenomegaly Musculoskeletal: no cyanosis or clubbing, extremities motor strength 5/5 Skin: no rashes, warm and dry Neurologic: PERRL, EOMI, accommodation nl, no face palsy, no dysarthria Psychiatric: A+Ox3, euthymic affect Lymphatic: no cervical or axillary lymphadenopathy Results & Data Vital Signs (Past 12 Hours) Vital Signs Temp Pulse Pulse Pulse Resp BP Pulse Ox 11/24/22 11:23 36.6 C 91 H 16 134/82 96 11/24/22 08:35 37.3 C 84 16 126/78 98 11/24/22 07:06 85 11/24/22 05:52 36.7 C 92 H 20 117/75 96 11/24/22 04:17 36.7 C 94 H 20 124/78 92 11/24/22 01:07 116 H O2 Del Method O2 Flow Rate 11/24/22 11:23 Nasal Cannula 3 11/24/22 08:35 Nasal Cannula 3 11/24/22 07:06 11/24/22 05:52 Nasal Cannula 2 11/24/22 04:17 Room Air 11/24/22 01:07 Laboratory Results WBC 8, Hb 13.4, Hct 29.2, Plts 212, Na 136, K 4.0, Cl 104, Co2 26, BUN 29, Cr 0. 97, glucose 133, Mg 1.6 Diagnostic Findings CTA chest 11/23/22: Wall thickening of esophagus with hiatal hernia and fluid distention, nonspecific, cannot rule out esophagitis and/or reflux. CTAP 11/23/22: There is a small to moderate hiatal hernia. Prominent lymph nodes adjacent to the distal esophagus measure up to 10 mm in short axis. 1. There is dependent consolidation at the right lung base, which could represent a mild pneumonitis or possibly a small pulmonary infarct. Pulmonary e mbolus is questioned within branches of the right lower lobe pulmonary artery and a small infarct is favored. Correlation with a CT angiogram of the chest is recommended as this is not well assessed on this abdominal examination. 2. No acute infectious or inflammatory findings are identified in the abdomen or pelvis. 3. Cardiomegaly and cardiac pacemaker. 4. The liver is mildly enlarged and steatotic. 5. Additional findings as above.
[2022-11-24] MEDS ORDERED: Heparin IV Adult Wt-Based Standard *NO* Bolus Protocol IV ONE (20:29)
[2022-11-24] MEDS: HEPARIN SODIUM/DEXTROSE 25,000 UNITS/500 ML BAG IV SCH (21:07)
[2022-11-24] MEDS ORDERED: ZOLPIDEM TARTRATE 5 MG TAB PO STA (22:49)
[2022-11-25] MEDS ORDERED: MAGNESIUM SULFATE / D5W 1 GM/100 ML BAG IV ONE (00:23)
[2022-11-25] MEDS: oxyCODONE HCL IR 5 MG TAB (IMMEDIATE RELEASE) PO PRN (03:07)
[2022-11-25 03:10] LABS: Basophils # (auto) 0.01 K/uL (0-0.2); Basophils % (auto) 0.1 %; Eosinophils # (auto) 0.06 K/uL (0-0.50); Eosinophils % (auto) 0.8 %; Hematocrit (blood only) 33.3 % (42.0-52.0); Hemoglobin 11.3 g/dl (14.0-18.0); Immature Granulocytes # (auto) 0.02 K/uL (0.01-0.20); Immature Granulocytes % (auto) 0.3 %; Lymphocytes # (auto) 1.67 K/uL (1.2-3.4); Lymphocytes % (auto) 22.7 %; Mean Corpuscular Hemoglobin 31.5 pg (25.0-34.0); Mean Corpuscular Hgb Conc 33.9 g/dL (32.0-36.0); Mean Corpuscular Volume 92.8 fL (80.0-100.0); Mean Platelet Volume 9.8 fL (9.4-12.4); Monocytes # (auto) 0.66 K/uL (0.11-0.59); Neutrophils # (auto) 4.94 K/uL (1.40-6.50); Neutrophils % (auto) 67.1 %; Platelet Count 191 K/uL (130-400); RDW Coefficient of Variation 13.2 % (11.5-14.5); RDW Standard Deviation 44.9 fL (36.4-46.3); Red Blood Count 3.59 M/uL (4.70-6.10); White Blood Count 7.36 K/ul (4.8-10.8)
[2022-11-25 03:12] LABS: Albumin Globulin Ratio 1.2 (0.9-2); Albumin Level 3.4 gm/dl (3.4-5.0); BUN Creatinine Ratio 27.6 (10-20); Bilirubin,Total 0.8 mg/dl (0.2-1.0); Calcium 8.6 mg/dl (8.5-10.1); Est GFR (African American) 107.2 ml/min; Est GFR (Non-African American) 92.5 ml/min; Globulin 2.9 gm/dl (2.5-4.0); Magnesium 1.9 mg/dl (1.7-2.4); Potassium 3.8 mmol/L (3.5-5.1); Total Protein 6.3 gm/dl (6.0-8.3)
[2022-11-25 03:54] LABS: Partial Thromboplastin Ratio 2.4; Partial Thromboplastin Time 65.5 Seconds (21.0-31.0)
[2022-11-25] MEDS: MoRPHine SULFATE 2 MG/ML CARP IV PRN (04:04)
[2022-11-25] MEDS: PANTOprazole 40 MG in SYRINGE 0 ML IV SCH (08:06)
[2022-11-25] MEDS: ASPIRIN 81 MG ECTAB PO SCH (08:06)
[2022-11-25] MEDS: TAMSULOSIN HCL 0.4 MG CAP PO SCH (08:06)
[2022-11-25] MEDS: ATORVASTATIN 20 MG TAB PO SCH (08:06)
[2022-11-25] MEDS: HEPARIN SODIUM/DEXTROSE 25,000 UNITS/500 ML BAG IV SCH (11:32)
[2022-11-25 12:47] LABS: Bilirubin Urine 1+ (Negative); Blood Urine 3+ (Negative); Glucose Urine UA Negative (Negative); Ketones Urine Negative (Negative); Leukocyte Esterase Urine Negative (Negative); Nitrite Urine Negative (Negative); Protein Urine 3+ (Negative); Specific Gravity Urine >= 1.030 (1.000-1.030); Urobilinogen Urine Negative (Negative)
[2022-11-25 12:48] LABS: Appearance Urine Turbid (Clear); Color Urine Brown
[2022-11-25 12:54] LABS: RBC Urine >30 /hpf (0-4)
[2022-11-25 12:55] LABS: Bacteria Urine 2+ (Negative); Hyaline Casts Urine 0-5 /lpf (0-5); WBC Urine >30 /hpf (0-5)
--- NOTE | 2022-11-25 13:34 | Hospitalist Progress Note ---
Date of Service November 25, 2022 Assessment & Plan (1) Acute pulmonary embolism: Plan: Presented with right lower chest pleuritic pain Patient recently diagnosed with COVID infection in October CT angio shows right lower lobe PE, most likely right lower lobe infarct causing the chest pain. DVT ruled out Was on Lovenox; had hematuria. Switched over to IV heparin. Plan to discharge on Eliquis; prescription sent to pharmacy. Will provide him coupon for Eliquis at discharge. (2) Acute blood loss anemia: (3) Hematuria: Plan: Patient had prostate biopsy done on November 21 for elevated PSA Since then, patient has noted hematuria which increased in intensity after he was started on anticoagulation. Urinalysis shows 3+ blood, greater than 30 WBC and 2+ bacteria. Plan to start him on ceftriaxone; will follow-up on blood culture His hemoglobin down trended from 13 to 11 monitor for now. (4) Esophagitis: Plan: CT angios shows moderate to severe fluid distended with wall thickening and hiatal hernia. Currently on Protonix twice daily GI on board; Recommended twice daily PPI. No eating and drinking for 3 hours prior to bedtime. Head elevated while sleeping. (5) Complete heart block: Plan: Status post pacemaker Follow-up with cardiology. (6) BPH (benign prostatic hyperplasia): Plan: On Flomax (7) CAD (coronary artery disease): Plan: Nonobstructive CAD. Continue on aspirin and statin Plan Full code DVT prophylaxis therapeutic heparin DispoHome after resolution of medical issues Admission and Anticipated Discharge Date Admission Date: November 23, 2022 Subjective Patient seen and examined at bedside. Overnight, he reported gross hematuria. Lovenox was switched to IV heparin. Reports that the chest pain continues to be there; slight decrease in the intensity. Denies any shortness of breath, palpitation, dizziness or abdominal pain. Review of Systems Review of Systems: All systems reviewed & are unremarkable except as noted in Subjective Physical Exam Physical Exam: Constitutional: WD/WN, vitals as above, NAD, sitting up in bed, pleasant, conversing easily Respiratory: Bilateral clear vesicular breath sound. Cardiovascular: RRR, no murmur, no edema Vessels: no JVD or carotid bruit Chest: normal inspection of chest Abdomen: normal bowel sounds, soft, nontender, no hepatosplenomegaly Musculoskeletal: no cyanosis or clubbing, extremities motor strength 5/5 Skin: no rashes, warm and dry normal turgor Neurologic: PERRL, EOMI, accommodation nl, no face palsy, no dysarthria CN's II- XI intact bilaterally and moves all extremities Psychiatric: A+Ox3, euthymic affect Lymphatic: no cervical or axillary lymphadenopathy : deferred Results & Data Results & Data Vital Signs (Past 12 Hours) Vital Signs Temp Pulse Pulse Resp BP Pulse Ox O2 Del Method 11/25/22 11:07 36.9 C 105 H 18 126/78 95 Nasal Cannula 11/25/22 08:55 81 11/25/22 08:51 Nasal Cannula 11/25/22 07:45 36.4 C L 85 18 124/76 94 Nasal Cannula 11/25/22 03:12 36.8 C 96 H 18 128/79 94 Nasal Cannula O2 Flow Rate 11/25/22 11:07 2 11/25/22 08:55 11/25/22 08:51 2 11/25/22 07:45 2 11/25/22 03:12 2 Laboratory Results Laboratory Results WBC 7.36 K/ul (4.8-10.8) 11/25/22 02:31 RBC 3.59 M/uL (4.70-6.10) L 11/25/22 02:31 Hgb 11.3 g/dl (14.0-18.0) L 11/25/22 02:31 POC Hgb 13.6 g/dl (14.0-18.0) L 11/23/22 18:02 Hct 33.3 % (42.0-52.0) L 11/25/22 02:31 POC Hct 40 % (42-52) L 11/23/22 18:02 MCV 92.8 fL (80.0-100.0) 11/25/22 02:31 MCH 31.5 pg (25.0-34.0) 11/25/22 02:31 MCHC 33.9 g/dL (32.0-36.0) 11/25/22 02:31 RDW Std Deviation 44.9 fL (36.4-46.3) 11/25/22 02:31 RDW Coeff of Lyle 13.2 % (11.5-14.5) 11/25/22 02:31 Plt Count 191 K/uL (130-400) 11/25/22 02:31 MPV 9.8 fL (9.4-12.4) 11/25/22 02:31 Immature Gran % (Auto) 0.3 % 11/25/22 02:31 Neut % (Auto) 67.1 % 11/25/22 02:31 Lymph % (Auto) 22.7 % 11/25/22 02:31 [place] % (Auto) 9.0 % 11/25/22 02:31 Eos % (Auto) 0.8 % 11/25/22 02:31 Baso % (Auto) 0.1 % 11/25/22 02:31 Neut # (Auto) 4.94 K/uL (1.40-6.50) 11/25/22 02:31 Lymph # (Auto) 1.67 K/uL (1.2-3.4) 11/25/22 02:31 [place] # (Auto) 0.66 K/uL (0.11-0.59) H 11/25/22 02:31 Eos # (Auto) 0.06 K/uL (0-0.50) 11/25/22 02:31 Baso # (Auto) 0.01 K/uL (0-0.2) 11/25/22 02:31 Immature Gran # (Auto) 0.02 K/uL (0.01-0.20) 11/25/22 02:31 PT 10.5 Seconds (9.0-12.0) 11/23/22 20:15 INR 1.0 (0.9-1.1) 11/23/22 20:15 APTT 65.5 Seconds (21.0-31.0) H* 11/25/22 02:31 PTT Ratio 2.4 11/25/22 02:31 POC Sodium 141 mmol/L (135-144) 11/23/22 18:02 Sodium 133 mmol/L (136-145) L 11/25/22 02:31 POC Potassium 3.8 mmol/L (3.3-5.0) 11/23/22 18:02 Potassium 3.8 mmol/L (3.5-5.1) 11/25/22 02:31 POC Chloride 104 mmol/L (101-112) 11/23/22 18:02 Chloride 102 mmol/L (98-107) 11/25/22 02:31 Carbon Dioxide 27 mmol/L (21-32) 11/25/22 02:31 POC Total CO2 25 mmol/L (24-31) 11/23/22 18:02 Anion Gap 4 (3-11) 11/25/22 02:31 POC Anion Gap 17.0 mmol/L (16-25) 11/23/22 18:02 POC BUN 30 mg/dl (7-18) H 11/23/22 18:02 BUN 24 mg/dl (6-23) H 11/25/22 02:31 Creatinine 0.87 mg/dl (0.6-1.4) 11/25/22 02:31 POC Creatinine 1.0 mg/dl (0.6-1.3) 11/23/22 18:02 Est Cr Clr Drug Dosing 118.0 ml/min 11/25/22 02:31 Est GFR ( Amer) 107.2 ml/min 11/25/22 02:31 Est GFR (Non-Af Amer) 92.5 ml/min 11/25/22 02:31 BUN/Creatinine Ratio 27.6 (10-20) H 11/25/22 02:31 Glucose 126 mg/dl (70-99(Fasting)) H 11/25/22 02:31 POC Glucose (other) 99 mg/dl (70-99) 11/23/22 18:02 Calcium 8.6 mg/dl (8.5-10.1) 11/25/22 02:31 POC Ioniz Calcium Ashlee 1.20 mmol/l (1.12-1.32) 11/23/22 18:02 Magnesium 1.9 mg/dl (1.7-2.4) 11/25/22 02:31 Total Bilirubin 0.8 mg/dl (0.2-1.0) 11/25/22 02:31 AST 12 U/L (13-39) L 11/25/22 02:31 ALT 14 U/L (7-52) 11/25/22 02:31 Alkaline Phosphatase 82 U/L (34-104) 11/25/22 02:31 Troponin I High Sens 3.3 pg/ml (0-20) 11/23/22 17:15 Total Protein 6.3 gm/dl (6.0-8.3) 11/25/22 02:31 Albumin 3.4 gm/dl (3.4-5.0) 11/25/22 02:31 Globulin 2.9 gm/dl (2.5-4.0) 11/25/22 02:31 Albumin/Globulin Ratio 1.2 (0.9-2) 11/25/22 02:31 Lipase 84 U/L (11-82) H 11/23/22 17:15 Procalcitonin 0.09 ng/ml (0-0.5) 11/24/22 08:06 Urine Color Brown 11/25/22 11:50 Urine Appearance Turbid (Clear) A 11/25/22 11:50 Urine pH 6.0 (4.5-7.5) 11/25/22 11:50 Ur Specific [place] >= 1.030 (1.000-1.030) 11/25/22 11:50 Urine Protein 3+ (Negative) H 11/25/22 11:50 Urine Glucose (UA) Negative (Negative) 11/25/22 11:50 Urine Ketones Negative (Negative) 11/25/22 11:50 Urine Blood 3+ (Negative) H 11/25/22 11:50 Urine Nitrite Negative (Negative) 11/25/22 11:50 Urine Bilirubin 1+ (Negative) H 11/25/22 11:50 Urine Urobilinogen Negative (Negative) 11/25/22 11:50 Ur Leukocyte Esterase Negative (Negative) 11/25/22 11:50 Urine WBC (Auto) 10-30 /hpf (0-5) H 11/23/22 17:15 Urine RBC (Auto) >30 /hpf (0-4) H 11/23/22 17:15 U Hyaline Cast (Auto) 5-10 /lpf (0-5) H 11/23/22 17:15 U Epithel Cells (Auto) 10-20 /lpf (0-5) H 11/23/22 17:15 Urine Bacteria (Auto) Negative (Negative) 11/23/22 17:15 Urine RBC >30 /hpf (0-4) H 11/25/22 11:50 Urine WBC >30 /hpf (0-5) H 11/25/22 11:50 Ur Epithelial Cells 5-10 /lpf (0-5) H 11/25/22 11:50 Urine Bacteria 2+ (Negative) H 11/25/22 11:50 Hyaline Casts 0-5 /lpf (0-5) 11/25/22 11:50 SARS-CoV-2, RNA, NAAT NEGATIVE (NEGATIVE) 11/23/22 21:47 Impressions Abdomen/Pelvis CT 11/23/22 17:21 CT SCAN OF THE ABDOMEN AND PELVIS WITH IV CONTRAST CLINICAL HISTORY: Right flank pain. COMPARISON STUDY: No priors. TECHNIQUE: Following the IV administration of 85 cc of Optiray 350, CT scan of the abdomen and pelvis is performed from the lung bases to the proximal femora. Images are reviewed in the axial, sagittal, and coronal planes. IV contrast was administered without complication. A dose lowering technique was utilized adhering to the principles of ALARA. CT DOSE: 857.24 mGy.cm FINDINGS: Lung bases: The heart is enlarged and without pericardial effusion. Pacemaker leads are in place. A 4 mm pleural-based nodule is seen in the right middle lobe on image #10. Question pulmonary embolus within a branch of the right lower lobe pulmonary artery. Dependent consolidation is seen at the right lung base. There is a small to moderate hiatal hernia. Prominent lymph nodes adjacent to the distal esophagus measure up to 10 mm in short axis. Liver: The contrast-enhanced liver is mildly enlarged measuring over 18 cm in length. The liver demonstrates mixed attenuation suggesting steatosis. There is no intrahepatic biliary ductal dilatation. The hepatic veins and portal veins are patent. Gallbladder: Unremarkable. Spleen: Normal in size and attenuation. Pancreas: Unremarkable. Adrenal glands: Unremarkable. Kidneys: The contrast enhanced kidneys are normal in size and without hydronephrosis. The kidneys enhance symmetrically. A 6 cm cyst arises from the upper pole of the right kidney. Renal sinus cysts are seen bilaterally. Abdominal vasculature: The abdominal aorta is normal in course and caliber noting mild atherosclerotic calcification. Bowel: There is mild colonic fecal retention. No bowel obstruction is seen. The appendix is well-visualized and normal. Peritoneum: There is no intraperitoneal free air or abdominal ascites. There is a fat-containing umbilical hernia. There is nonspecific haziness throughout the central mesentery. Lymphadenopathy: None. Pelvic viscera: The prostate gland is moderately enlarged and heterogeneous. The bladder is normal as visualized. There is a fat-containing right inguinal hernia. Skeletal structures: The skeletal structures are osteopenic. Mild lumbosacral spondylosis is observed. No lytic or blastic lesions are seen. IMPRESSION: 1. There is dependent consolidation at the right lung base, which could represent a mild pneumonitis or possibly a small pulmonary infarct. Pulmonary embolus is questioned within branches of the right lower lobe pulmonary artery and a small infarct is favored. Correlation with a CT angiogram of the chest is recommended as this is not well assessed on this abdominal examination. 2. No acute infectious or inflammatory findings are identified in the abdomen or pelvis. 3. Cardiomegaly and cardiac pacemaker. 4. The liver is mildly enlarged and steatotic. 5. Additional findings as above. ACT 112: Negative or not required by law. Electronically signed by: Abraham Gross M.D. 11/23/2022 7:45 PM Chest CTA 11/23/22 20:43 CR Exam(s): CTA CHEST EXAM: CT Angiography Chest With Intravenous Contrast CLINICAL HISTORY: Reason for exam: PE. TECHNIQUE: Axial computed tomographic angiography images of the chest with intravenous contrast. CTDI is 36.11 mGy and DLP is 720.07 mGy-cm. Automated exposure control was utilized for the study. A dose lowering technique was utilized adhering to the principles of ALARA. MIP reconstructed images were created and reviewed. 111ml optiray 320 given IV. COMPARISON: None. FINDINGS: Pulmonary arteries: Mild burden, occlusive, segmental and subsegmental right lower lobe pulmonary embolism. Aorta: No aneurysm. Lungs: Mild, dependent infiltrate or infarct right lower lobe. Small left upper lobe nodular infiltrates. Isolated 4 mm right middle lobe pleural-based pulmonary nodule. Mild left lower lobe atelectasis or infiltrate. No consolidation. Pleural space: No significant effusion. No pneumothorax. Heart: Pacemaker. Mild to moderate cardiomegaly. No significant pericardial effusion. No evidence of elevated right heart pressures. Bones/joints: No acute fracture. Soft tissues: Wall thickening of esophagus with hiatal hernia and fluid distention, nonspecific, cannot rule out esophagitis and/or reflux. Right upper pole renal cyst, 5.5 cm, partially imaged. Lymph nodes: No enlarged lymph nodes. IMPRESSION: 1. Mild right lower lobe pulmonary embolism. No right heart strain. 2. Mild right lower lobe infiltrate or infarct. Mild left lower lobe infiltrate. 3. Nodular infiltrate left upper lobe and 4 mm pleural-based nodule right middle lobe. 4. Moderate to severe fluid distended osseous with wall thickening and hiatal hernia. Correlate clinically, cannot rule out esophagitis and/or reflux. Communications: Call Doctor Pulmonary Embolism Electronically signed by: Beth Meek M.D. 11/23/22 21:42 PM Venous Doppler Study 11/24/22 00:00 BILATERAL LOWER EXTREMITY VENOUS DOPPLER HISTORY: acute pulmonary emboli. Assess for DVT? COMPARISON STUDY: None. FINDINGS: There is normal compressibility, flow, and augmentation within the bi lateral lower extremity deep venous systems. IMPRESSION: No DVT within the right or left lower extremity. ACT 112: Negative or not required by law. Electronically signed by: Roger Silva M.D. 11/24/2022 10:29 AM
[2022-11-25] MEDS ORDERED: cefTRIAXone SODIUM 2,000 MG in DEXTROSE 5% 50 ML IV SCH (14:00)
[2022-11-25] MEDS: PANTOprazole 40 MG TAB PO SCH (20:19)
--- NOTE | 2022-11-26 00:02 | Electrocardiogram Report ---
Test Reason : Blood Pressure : / mmHG Vent. Rate : 101 BPM Atrial Rate : 101 BPM P-R Int : 164 ms QRS Dur : 096 ms QT Int : 344 ms P-R-T Axes : 037 -06 010 degrees QTc Int : 446 ms Sinus tachycardia Minimal voltage criteria for LVH, may be normal variant Borderline ECG When compared with ECG of 01-NOV-2022 09:05, Sinus rhythm has replaced AV pacing Confirmed by Orlando Waite ([id number]) on 11/26/2022 12:02:14 AM Referred By: Harley Moncada Confirmed By:Orlando Waite
[2022-11-26] MEDS: HEPARIN SODIUM/DEXTROSE 25,000 UNITS/500 ML BAG IV SCH (02:15)
[2022-11-26 07:08] LABS: Basophils # (auto) 0.01 K/uL (0-0.2); Basophils % (auto) 0.1 %; Eosinophils # (auto) 0.16 K/uL (0-0.50); Eosinophils % (auto) 2.3 %; Hematocrit (blood only) 32.1 % (42.0-52.0); Hemoglobin 11.3 g/dl (14.0-18.0); Immature Granulocytes # (auto) 0.03 K/uL (0.01-0.20); Immature Granulocytes % (auto) 0.4 %; Lymphocytes # (auto) 1.42 K/uL (1.2-3.4); Lymphocytes % (auto) 20.3 %; Mean Corpuscular Hemoglobin 31.7 pg (25.0-34.0); Mean Corpuscular Hgb Conc 35.2 g/dL (32.0-36.0); Mean Corpuscular Volume 89.9 fL (80.0-100.0); Mean Platelet Volume 9.8 fL (9.4-12.4); Monocytes # (auto) 0.67 K/uL (0.11-0.59); Monocytes % (auto) 9.6 %; Neutrophils % (auto) 67.3 %; Platelet Count 235 K/uL (130-400); RDW Coefficient of Variation 12.6 % (11.5-14.5); RDW Standard Deviation 41.3 fL (36.4-46.3); Red Blood Count 3.57 M/uL (4.70-6.10); White Blood Count 6.99 K/ul (4.8-10.8)
[2022-11-26 07:39] LABS: Albumin Globulin Ratio 1.2 (0.9-2); Albumin Level 3.4 gm/dl (3.4-5.0); BUN Creatinine Ratio 19.6 (10-20); Bilirubin,Total 0.6 mg/dl (0.2-1.0); Calcium 8.1 mg/dl (8.5-10.1); Creatinine Clr Calc Pharmacy 111.7 ml/min; Est GFR (African American) 102.9 ml/min; Est GFR (Non-African American) 88.8 ml/min; Globulin 2.9 gm/dl (2.5-4.0); Potassium 3.4 mmol/L (3.5-5.1); Total Protein 6.3 gm/dl (6.0-8.3)
[2022-11-26 08:02] LABS: Partial Thromboplastin Ratio 3.1
[2022-11-26 08:09] LABS: Partial Thromboplastin Time 86.3 Seconds (21.0-31.0)
[2022-11-26] MEDS: ASPIRIN 81 MG ECTAB PO SCH (08:17)
[2022-11-26] MEDS: TAMSULOSIN HCL 0.4 MG CAP PO SCH (08:17)
[2022-11-26] MEDS: ATORVASTATIN 20 MG TAB PO SCH (08:17)
[2022-11-26] MEDS: PANTOprazole 40 MG TAB PO SCH (08:17)
--- NOTE | 2022-11-26 11:03 | Urology Consultation ---
Date of Consultation November 26, 2022 Assessment & Plan (1) Hematuria: Plan 62 yo M admitted for PE. Underwent a prostate needle biopsy on 11/21 by an outside provider. Has been experiencing expected post-biopsy hematuria whiched worsened once anticoagulation was begun. -No acute urologic intervention -Continue antibiotics until culture returns. If negative, antibiotics can be discontinued -Voiding spontaneously, no indication for cespedes catheter, although did offer patient one. He declined. -Hematuria will improve over time, may take several weeks since patient will require anticoagulation -Follow up with primary urologist once patient is discharged -Urology to sign off History of Present Illness Reason for Consultation: Hematuria following prostate biopsy Attending Physician: Andrew Manley MD History of Present Illness 62 yo M admitted for flank pain and a PE. He had a prostate needle biopsy done by an outside urologist this past Monday. He has had expected post-biopsy hematuria. He was started on a heparin drip as an inpatient. Urinalysis showed blood and urine culture is pending. He is currently on ceftriaxone. CT scan of the abd/pelvis performed and reviewed, this showed no acute urologic abnormalities. Patient has been spontaneously voiding. He reports urgency and frequency which I think is expected. He does feel as if he is completely emptying his bladder. He reports his PSA was previously 27. He has not got the pathology back yet. He has no previous history of urologic procedures. No smoking history or family history of prostate cancer. Allergies Allergy/AdvReac Type Severity Reaction Status Date / Time No Known Allergies Allergy Verified 11/23/22 19:57 Home Medications Medication Instructions Recorded Confirmed Type tamsulosin 0.4 mg capsule 0.4 mg PO DAILY 11/01/22 11/23/22 History aspirin 81 mg tablet,delayed 81 mg PO DAILY 11/23/22 11/23/22 History release atorvastatin 20 mg PO DAILY 11/23/22 11/23/22 History apixaban 5 mg tablet (Eliquis) 5 mg PO BID #74 tabs 11/24/22 Rx cefdinir 300 mg capsule 300 mg PO BID 6 days #12 caps 11/26/22 Rx oxycodone 5 mg tablet 5 mg PO Q6H PRN pain #10 tabs 11/26/22 Rx pantoprazole 40 mg tablet,delayed 40 mg PO BID #60 tabs 11/26/22 Rx release Patient History Medical History Aortic root dilatation CAD (coronary artery disease) Mild nonobstructive coronary artery disease per 2018 cardiac cath Obesity (BMI 30.0-34.9) Pacemaker Implanted 2018 (complete heart block), [employer], follows with Dr. Faye/[place] Pericarditis 2018 Surgical History History of colonoscopy History of permanent cardiac pacemaker placement Implanted 2018 (complete heart block), [employer], last check 2020, follows with Dr. Faye/[place] Hx of sinus surgery Septoplasty, Celon Turbinate Reduction (11/06/20): LMA#4 at [facility] Family History Brother Aneurysm Father Coronary heart disease Myocardial infarction Other No family history of adverse response to anesthesia Social History Smoking Status: Never smoker Second Hand Exposure: No; Hx Alcohol Use: No Hx Substance Use: No Preferred Language: [place] Communication Ability: Effective Maintenance Superintendent Required: No Beliefs That Will Affect Care: None marital status: Current Living Situation: Spouse current occupational status: employed current occupation: [employer] Other Information That Helps Us Care for You: No Feels Safe at Home: Yes Safety Concerns: Feels Safe At This Time Assistive Devices: Glasses Review of Systems Review of Systems: 14 point review of systems negative outside of what is listed above in HPI Physical Exam Physical Exam: General: Alert and oriented, no acute distress HEENT: Normocephalic, mucous membranes moist Pulmonary: Nonlabored respirations Abdomen: Nondistended, soft, nontender Extremities: Moves all 4 spontaneously Neuro: No gross deficits Skin: Warm, dry, no rashes noted Results & Data Vital Signs (Past 12 Hours) Vital Signs Temp Pulse Pulse Pulse Resp BP Pulse Ox 11/26/22 09:12 37.4 C 104 H 16 120/70 91 11/26/22 07:23 106 H 11/26/22 02:43 37.8 C H 93 H 18 118/70 91 O2 Del Method 11/26/22 09:12 Room Air 11/26/22 07:23 11/26/22 02:43 Room Air PG Care Time/CCT Total # of Minutes Spent Total Time Spent with Patient: Total time spent is greater than 50% in coordination of care (as documented) at patient's floor/unit and/or counseling patient: Coding Level of Care Code 78863 IN/OBS CONSULT LVL 4,60M Diagnoses Hematuria R31.9
[2022-11-26] MEDS ORDERED: APIXABAN 5 MG TABLET PO SCH (12:45)
--- NOTE | 2022-11-26 12:47 | Discharge Summary ---
Date of Service November 26, 2022 Admission HPI Per Admitting Provider This is a 62-year-old male with past medical history significant for complete heart block, status post pacemaker, borderline aortic root dilatation in 2018, nonobstructive CAD in 2018, history of hyperlipidemia, presents with right flank pain since the morning. At times, it was 10/10 in severity. When the pain was severe, he was nauseous and had some shortness of breath. Currently, the pain much improved, 3/10 in severity. He said he had COVID in October. Since then, he has had on and off dry cough. Denies any fevers. Nauseous when pain was severe. No abdominal pain. He had prostate biopsy done last Monday for elevated PSA. Says he had one-day duration of some blood in the stools and blood in the urine, but its resolved now. The biopsy results are pending. He has a followup appointment at the end of this month. Denies any headache. No blurred visions. No earache, no runny nose, no sore throat. Appetite is okay. Ambulating okay. Currently, resting comfortably and hemodynamically stable. Admission Exam Per Admitting Provider GENERAL: The patient is of moderate build, not in acute distress. VITAL SIGNS: Temperature 36.3, pulse 90, respiratory rate 18, blood pressure 131/86, oxygen 94% on room air. HEENT: Pupils equal, round and reactive to light. Oral mucosa moist. NECK: No JVD. No neck masses. CARDIOVASCULAR: S1 and S2 heard. Regular rate and rhythm. No murmur, no gallop. RESPIRATORY SYSTEM: Normal AP diameter. No accessory muscle use. No wheezing, no crackles. ABDOMEN: Soft, bowel sounds present, nontender, no distention. CENTRAL NERVOUS SYSTEM: Cranial nerves II through XII grossly intact. Nonfocal. EXTREMITIES: Mild pedal edema present. No erythema seen. Principal Diagnosis Acute pulmonary embolism Hematuria GERD Discharge Exam Constitutional: WD/WN, vitals as above, NAD, sitting up in bed, pleasant, conversing easily Respiratory: Bilateral clear vesicular breath sound. Cardiovascular: RRR, no murmur, no edema Vessels: no JVD or carotid bruit Chest: normal inspection of chest Abdomen: normal bowel sounds, soft, nontender, no hepatosplenomegaly Musculoskeletal: no cyanosis or clubbing, extremities motor strength 5/5 Skin: no rashes, warm and dry normal turgor Neurologic: PERRL, EOMI, accommodation nl, no face palsy, no dysarthria CN's II- XI intact bilaterally and moves all extremities Psychiatric: A+Ox3, euthymic affect Lymphatic: no cervical or axillary lymphadenopathy : deferred Discharge Data Allergies Allergy/AdvReac Type Severity Reaction Status Date / Time No Known Allergies Allergy Verified 11/23/22 19:57 Consultations 11/23/22 19:56 ED Decision to Admit Stat 11/24/22 08:00 Consult Gastroenterology Routine 11/25/22 14:08 Consult Urology Routine Ordered Studies 11/23/22 17:21 CT abd pelvis IV con only Stat 11/23/22 20:43 CT angio chest PE protocol Stat 11/24/22 US venous doppler LE Routine Hospital Course (1) Acute pulmonary embolism: Presented with right lower chest pleuritic pain Patient recently diagnosed with COVID infection in October CT angio shows right lower lobe PE, most likely right lower lobe infarct causing the chest pain. DVT ruled out Was on Lovenox; had hematuria. Switched over to IV heparin. Plan to discharge on Eliquis; prescription sent to pharmacy. Will provide him coupon for Eliquis at discharge. (2) Acute blood loss anemia: (3) Hematuria: Patient had prostate biopsy done on November 21 for elevated PSA Since then, patient has noted hematuria which increased in intensity after he was started on anticoagulation. Urinalysis shows 3+ blood, greater than 30 WBC and 2+ bacteria. Plan to start him on ceftriaxone; will follow-up on blood culture His hemoglobin down trended from 13 to 11 monitor for now. (4) Esophagitis: CT angios shows moderate to severe fluid distended with wall thickening and hiatal hernia. Currently on Protonix twice daily GI on board; Recommended twice daily PPI. No eating and drinking for 3 hours prior to bedtime. Head elevated while sleeping. (5) Complete heart block: Status post pacemaker Follow-up with cardiology. (6) BPH (benign prostatic hyperplasia): On Flomax (7) CAD (coronary artery disease): Nonobstructive CAD. Continue on aspirin and statin Plan Patient is a 62-year-old male with past medical history of complete heart block, status post pacemaker, borderline aortic root dilatation in 2018, nonobstructive CAD in 2018, history of hyperlipidemia, presents right lower side chest pain. He also endorses shortness of breath. He recently had COVID in October and was having an off dry cough. CT angio showed right lower lobe PE along with right lower infarct. He was anticoagulated and admitted to telemetry floor. He was managed for following condition during the hospitalization: (1) Acute pulmonary embolism: Presented with right lower chest pleuritic pain Patient recently diagnosed with COVID infection in October CT angio shows right lower lobe PE, most likely right lower lobe infarct causing the chest pain. DVT ruled out Echocardiogram rule out right heart strain Discharged on Eliquis; coupon provided on discharge. Patient was recommended to be on anticoagulation at least for 3 to 6 months. He was recommended to undergo age-appropriate cancer screening. He is due for colonoscopy in the next few months. Two-step O2 evaluation was done; patient required 2 L on exertion. (2) Acute blood loss anemia: (3) Hematuria: Plan: Patient had prostate biopsy done on November 21 for elevated PSA Since then, patient has noted hematuria which increased in intensity after he was started on anticoagulation. Urinalysis shows 3+ blood, greater than 30 WBC and 2+ bacteria. Patient's hemoglobin down trended from 13-11; was stable at 11 at discharge. Urology was consulted; patient was treated inpatient with ceftriaxone and discharged on cefdinir for 6 more days. (4) Esophagitis: Plan: CT angios shows moderate to severe fluid distended with wall thickening and hiatal hernia. Currently on Protonix twice daily GI consulted; Recommended twice daily PPI. No eating and drinking for 3 hours prior to bedtime. Head elevated while sleeping. Patient to undergo outpatient endoscopy. Patient was discharged home. A follow-up with his primary care was set up in 3 days. Repeat CBC to be done as outpatient. Total Time Total Time Spent Total Time Spent (In Minutes): 40 Total Time Includes: Examination of the Patient, Discharge Planning, Medication Reconciliation, Communication With Other Providers and Other Discharge Plan Discharge Items Patient Disposition: Home - Self-Care Reason For Visit: flank pain Discharge Diagnosis: Pulmonary embolism Hematuria UTI Activity: Resume your previous activity Non-emergency contact: Primary Care Provider Call non-emergency contact if: you have any medication questions and your symptoms worsen Follow-up/Referrals: Ray Abreu MD [Primary Care Provider] - (Date & Time 11/29/2022 3:20 PM Provider Ray Abreu MD Department Family Practice [facility] ) Diet: Regular Addtl Attending Provider Instructions: You were admitted to the hospital with following conditions: 1) Pulmonary embolism ( blood clot in the lung vessel): -You are treated with blood thinners during the hospitalization. You are discharged on Eliquis. Please follow the following instruction regarding the dose. -Take 10 mg (2 tablets) twice daily starting to December 02( Total of one week). Then, take 5 mg ( 1 Tablet) twice daily from December 03. The likely reason for your blood clot was COVID infection. You should be on blood thinner for at least 3 to 6 months. -Please use 2L of oxygen on exertion; the saturation goal is greater than 92%. 2) Hematuria ( blood in the urine): You are prescribed cefdinir (antibiotic) 300 mg twice daily to be taken for 6 more days. 3) GERD : The CT of your chest showed wall thickening of the esophagus; you were evaluated by GI during the hospitalization. You are prescribed Protonix twice daily to be taken daily. The GI office will call you with appointment. Please discuss this with her primary care doctor as well; he will likely need endoscopy and endoscopic ultrasound with GI. An appointment is set up with her primary care doctor. Please repeat complete blood count during the visit. Your hemoglobin level was 11 at discharge. Pending Studies at Discharge: No Stand-Alone Forms: My [facility] [employer], Smoking Cessation Medications and DC Order Prescriptions: New Eliquis 5 mg tablet 5 mg PO BID Qty: 74 0RF pantoprazole 40 mg Tablet,Delayed Release (Dr/Ec) 40 mg PO BID Qty: 60 0RF oxycodone 5 mg tablet 5 mg PO Q6H PRN (Reason: pain) Qty: 10 0RF cefdinir 300 mg capsule 300 mg PO BID 6 Days Qty: 12 0RF Continued tamsulosin 0.4 mg capsule 0.4 mg PO DAILY aspirin 81 mg Tablet,Delayed Release (Dr/Ec) 81 mg PO DAILY atorvastatin 20 mg 20 mg PO DAILY Discharge Orders: Discharge Order (Routine); Ordered 11/26/22 Ordered By: Andrew Manley Admission Data Admit Date/Time: 11/23/22 22:19 Attending Provider: Andrew Manley Admit Provider: Matthew Flaherty Primary Care Provider: Ray Abreu Other Providers: Matthew Flaherty ; Derrick Pickens ; Ricky Rose ; Darlene Collins ; Molly Chapman ; Jolie Ross ; Vy Agee ; Samuel Funes ; Kendall Bentley ; Joann Lindsey ; Mikki Silva ; Tre Schmitt ; Rocio Conde ; Robyn Miller ; Sujata Bailey ; Krais Culp ; Osman Griffin ; Matthias Donahue ; Malick Delatorre ; Angela Luque ; Glenn Llanes Jr ; Galen Quiroz Other Interventions: Discharge Summary Assessment (RN) Last Done: 11/26/22 13:33
--- NOTE | 2022-11-29 13:30 | Coding Query ---
To promote full compliance with coding requirements relating to patient care, provider participation is requested in all cases of midwife and birth center owner uncertainty. Please assist us with the question(s) below: Coding Question(s): The diagnosis below was documented in the H&P, then subsequently fell off all further documentation. Please indicate if it is still a possible diagnosis or ruled out. Physician's Response(s): POSSIBLE PNEUMONIA ( ) Diagnosed and POA ( ) Diagnosed and not POA ( X ) Ruled out ( ) Other (please specify) MTDD
== END 2022-11-26 14:00 | disposition home or self-care (01) | DRG 176 ==
LOC: ED 16:39 → 2N 22:19
DX: Z79.82 Long term (current) use of aspirin; N40.0 Benign prostatic hyperplasia without lower urinary tract symptoms; R31.0 Gross hematuria; E66.9 Obesity, unspecified; Z68.32 Body mass index [BMI] 32.0-32.9, adult; E78.5 Hyperlipidemia, unspecified; D62 Acute posthemorrhagic anemia; Z95.0 Presence of cardiac pacemaker; T45.515A Adverse effect of anticoagulants, initial encounter; I25.10 Atherosclerotic heart disease of native coronary artery without angina pectoris; K21.9 Gastro-esophageal reflux disease without esophagitis; I44.2 Atrioventricular block, complete; R60.0 Localized edema; Z79.899 Other long term (current) drug therapy; K20.90 Esophagitis, unspecified without bleeding; U09.9 Post COVID-19 condition, unspecified; Z87.891 Personal history of nicotine dependence; I26.99 Other pulmonary embolism without acute cor pulmonale; Z98.890 Other specified postprocedural states; R31.9 Hematuria, unspecified; Z82.49 Family history of ischemic heart disease and other diseases of the circulatory system